=== PATIENT | male | born 1960 | race Caucasian/White ===

== ENCOUNTER 2020-05-11 12:34 | Outpatient (REF) | payer OTHER, SELFPAY ==
[2020-05-11 21:29] LABS: Calculated LDL 124 mg/dL (<100); Cholesterol 196 mg/dL (<200); HDL Cholesterol 61 mg/dL (40-60); Triglyceride 59 mg/dL (<150)
== END 2020-05-11 12:54 ==
LOC: NCHCN 12:34
PROVIDERS: PCP Internal Medicine; Visit Provider Internal Medicine
DX: Z13.89 Encounter for screening for other disorder (principal)
CPT/HCPCS: 80061

== ENCOUNTER 2022-10-15 13:23 | Outpatient (REF) | payer OTHER, SELFPAY ==
[2022-10-17 18:46] LABS: PSA, Screening 0.7 ng/mL (<=4.5)
== END 2022-10-15 13:24 | disposition home or self-care (01) ==
LOC: NCHCN 13:23
PROVIDERS: PCP Internal Medicine; Visit Provider Internal Medicine
DX: Z12.5 Encounter for screening for malignant neoplasm of prostate (principal)
CPT/HCPCS: 84153

== ENCOUNTER 2024-10-28 09:06 | Outpatient (REF) | payer OTHER, SELFPAY ==
[2024-10-28 15:37] LABS: HCT 44.8 % (40.0-50.0); HGB 14.5 g/dL (13.5-17.5); MCH 30.1 pg (27.0-33.0); MCHC 32.4 % (32.0-36.0); MCV 93 fL (80-95); MPV 10.5 fL (8.0-11.0); Platelet Count 201 10^3/uL (130-400); RBC 4.81 10^6/uL (4.36-5.78); RDW 12.8 % (11.8-14.1); WBC 5.23 10^3/uL (4.4-10.8)
[2024-10-28 15:57] LABS: ALT 16 U/L (16-63); AST 28 U/L (15-37); Albumin 3.8 g/dL (3.4-5.0); Alkaline Phosphatase 71 U/L (46-116); Anion Gap 8.1 mmol/L (3-11); BUN 22 mg/dL (7-18); Bilirubin, Total 0.57 mg/dL (0.2-1.0); CO2 26.9 mmol/L (21.0-32.0); CREATININE 1.1 mg/dL (0.70-1.30); Calculated LDL 126 mg/dL (<100); Chloride 107 mmol/L (98-107); Cholesterol 211 mg/dL (<200); Glucose 87 mg/dL (74-106); HDL Cholesterol 72 mg/dL (40-60); Potassium 4.2 mmol/L (3.5-5.1); Sodium 142 mmol/L (136-145); Total Protein 7.6 g/dL (6.4-8.2); Triglyceride 65 mg/dL (<150)
== END 2024-10-28 09:07 | disposition home or self-care (01) ==
LOC: NCHCN 09:06
PROVIDERS: PCP Internal Medicine; Visit Provider Internal Medicine
DX: Z13.220 Encounter for screening for lipoid disorders (principal); R03.0 Elevated blood-pressure reading, without diagnosis of hypertension
CPT/HCPCS: 80053; 80061; 85027

== ENCOUNTER 2025-10-25 10:53 | Outpatient (REF) | payer OTHER, SELFPAY ==
[2025-10-25 16:47] LABS: Cholesterol 207 mg/dL (<200); HDL Cholesterol 64 mg/dL (>40)
== END 2025-10-25 10:54 | disposition home or self-care (01) ==
LOC: NCHCN 10:53
PROVIDERS: PCP Internal Medicine; Visit Provider Internal Medicine
DX: E78.5 Hyperlipidemia, unspecified (principal)
CPT/HCPCS: 80061